=== PATIENT | male | born 1980 | race Caucasian/White ===

== ENCOUNTER 2019-04-10 16:12 | Emergency (ER) | payer OTHER ==
--- NOTE | 2019-04-10 16:52 | CR ---
[id number] RAD/RAD Skull Less than 4V Exam: RAD Skull Less than 4V Indication:TRAUMA. Comparison: No prior imaging for comparison. Discussion: No radiographically evident calvarial fracture or other significant abnormality. Impression: Normal examination of the calvarium. Wilbur Deleon MD 04/10/19 [id number] Thank you for allowing us to participate in the care of your patient.
[2019-04-10 17:02] LABS: CHLORIDE,CL 106 mmol/L (98-107); SODIUM,NA 141 mmol/L (136-145)
[2019-04-10 17:04] LABS: ANION GAP 15.7 mmol/L (10-20)
[2019-04-10] MEDS ORDERED: Cephalexin 500 MG Cap PO ONE (17:10)
--- NOTE | 2019-04-10 17:20 | EDM.PDOC ---
ED HPI GENERAL MEDICAL PROBLEM - General Chief Complaint: Laceration Stated Complaint: laceration Time Seen by Provider: 04/10/19 16:12 Source of Information: Reports: Patient History Limitations: Reports: No Limitations - History of Present Illness INITIAL COMMENTS - FREE TEXT/NARRATIVE: Patient comes into the emergency department for a laceration and bleeding from the scalp. Initial report from a coworker was the patient was involved in a rogers accident at a construction site. A trauma code was activated based off the information provided initially. After obtaining further information from the patient the rogers was in the process of being moved and the patient obtained a laceration by trying to get another coworker out of the way to prevent any injuries and caught the edge of the rogers bucket as he was ducking his head to get the coworker out of the way prior to the rogers moving. He denies being hit by any objects other than the sharp edge. He denies any CMS changes, dizziness, nausea, blurred vision, changes in vision, ringing of the ears, loss of consciousness, or any other medical complaints. Patient denies being hit bluntly by the rogers. Up to date on Tetanus. No meds, allergies, or bleeding disorders. Onset: Sudden Location: Reports: Head Quality: Reports: Other Severity: Mild Improves with: Reports: None Worsens with: Reports: None Associated Symptoms: Reports: No Other Symptoms - Related Data Home Meds: Home Meds Cephalexin [Keflex] 500 mg PO BID #14 capsule 04/10/19 [Rx] ED ROS GENERAL - Review of Systems Review Of Systems: ROS reveals no pertinent complaints other than HPI. Constitutional: Reports: No Symptoms HEENT: Reports: No Symptoms Respiratory: Reports: No Symptoms Cardiovascular: Reports: No Symptoms GI/Abdominal: Reports: No Symptoms : Reports: No Symptoms Musculoskeletal: Reports: No Symptoms Skin: Reports: No Symptoms Neurological: Reports: No Symptoms ED EXAM, GENERAL - Physical Exam Exam: See Below Exam Limited By: No Limitations General Appearance: Alert, WD/WN, No Apparent Distress Eye Exam: Bilateral Eye: EOMI, PERRL Ears: Normal External Exam, Normal Canal, Hearing Grossly Normal, Normal TMs Ear Exam: Bilateral Ear: Auricle Normal, Canal Normal, TM normal Nose: Normal Inspection, Normal Mucosa, No Blood Throat/Mouth: Normal Inspection, Normal Lips, Normal Teeth, Normal Gums, Normal Oropharynx, Normal Voice Head: Other (laceration with active bleeding ) Neck: Normal Inspection, Supple, Non-Tender, Full Range of Motion Respiratory/Chest: No Respiratory Distress, No Accessory Muscle Use Cardiovascular: Normal Peripheral Pulses, Regular Rate, Rhythm Back Exam: Normal Inspection, Full Range of Motion Extremities: Normal Inspection, Normal Range of Motion, Non-Tender, No Pedal Edema Neurological: Alert, Oriented, CN II-XII Intact, Normal Cognition, Normal Gait, No Motor/Sensory Deficits, Other (arrival 1612 GCS 15, 1620 GCS 15, GCS 1730 15) Psychiatric: Normal Affect, Normal Mood Skin Exam: Warm, Dry, Intact, Normal Color ED GENERAL MEDICAL PROCEDURES - Laceration/Wound Repair Middle Anterior Head Lac/wound length in cm: 7 Appearance: Linear Distal NVT: Neuro & Vascular Intact, No Tendon Injury Skin Prep: Chlorhexidine (Hibiciens), Saline, Sterile Drape Exploration/Debridement/Repair: Wound Explored, Explored to Base, Moderate Debridement Closed with: [place] # of Sutures: 16 (ke) Sterile Dressing Applied: Nurse Tetanus Status Addressed: Yes Complications: No Course - Orders/Labs/Meds Orders: Active Orders 24 hr Category Date Time Status INR,PT,PROTHROMBIN TIME [COAG] Routine Lab 04/10/19 16:35 Received PTT,PARTIAL THROMBOPLSTIN TIME [COAG] Routine Lab 04/10/19 16:35 Received Labs: Laboratory Tests 04/10/19 04/10/19 Range/Units 16:35 16:35 WBC 9.3 (4.0-10.0) x10^3/uL RBC 5.07 (4.5-6.0) x10^6/uL Hgb 15.6 (14.0-18.0) g/dL Hct 46.1 (40.0-52.0) % MCV 90.9 (78.0-93.0) fL MCH 30.8 (26.0-32.0) pg MCHC 33.8 (32.0-36.0) g/dL RDW Coeff of [place] 14.0 (10.0-15.0) % Plt Count 192 (130-400) x10^3/uL Neut % (Auto) 65.0 (50.0-80.0) % Lymph % (Auto) 20.4 L (25.0-50.0) % [place] % (Auto) 7.9 (2.0-11.0) % Eos % (Auto) 6.2 H (0.0-4.0) % Baso % (Auto) 0.5 (0.2-1.2) % Sodium 141 (136-145) mmol/L Potassium 4.7 (3.5-5.1) mmol/L Chloride 106 (98-107) mmol/L Carbon Dioxide 24 (21-32) mmol/L Anion Gap 15.7 (10-20) mmol/L BUN 19 H (7-18) mg/dL Creatinine 1.2 (0.70-1.30) mg/dL Est Cr Clr Drug Dosing TNP Estimated GFR (MDRD) > 60 Glucose 97 (74-106) mg/dL Calcium 8.7 (8.5-10.1) mg/dL Meds: Medications Discontinued Medications Generic Name Dose Route Start Last Admin Trade Name Freq PRN Reason Stop Dose Admin Cephalexin 500 mg 04/10/19 17:10 Keflex PO 04/10/19 17:11 ONETIME ONE Departure - Departure Time of Disposition: 17:45 Disposition: Home, Self-Care 01 Condition: Good Clinical Impression: Laceration - Discharge Information *PRESCRIPTION DRUG MONITORING PROGRAM REVIEWED*: Not Applicable *COPY OF PRESCRIPTION DRUG MONITORING REPORT IN PATIENT YOAV: Not Applicable Prescriptions: Cephalexin [Keflex] 500 mg PO BID #14 capsule Instructions: Laceration Care, Adult, Stitches, Ke, or Adhesive Wound Closure, [id number], Cephalexin oral suspension, Probiotics Referrals: PCP,Not In Area [Ordering Only Provider] - Forms: ED Department Discharge Additional Instructions: 1. keep the area clean and dry 2. wear head gear when outdoors while the ke are in 3. Can use triple antibiotic cream over the area 4. Follow up in 7-10 days in the clinic to have ke evaluated and removed 5. take antibiotic as prescribed to prevent infection 6. It is recommended that you take a probiotic while on antibiotics to promote health GI tract 7. Call with any questions or concerns - Problem List Review Problem List Initiated/Reviewed/Updated: Yes - My Orders Last 24 Hours: My Active Orders 04/10/19 16:35 INR,PT,PROTHROMBIN TIME [COAG] Routine PTT,PARTIAL THROMBOPLSTIN TIME [COAG] Routine - Assessment/Plan Last 24 Hours: My Active Orders 04/10/19 16:35 INR,PT,PROTHROMBIN TIME [COAG] Routine PTT,PARTIAL THROMBOPLSTIN TIME [COAG] Routine Assessment:: Laceration Plan: 1. Wound cleansing 2. Xray- head. results reviewed with the patient.-negative findings 3. Phone consult completed with Dr. Verdin regarding patients laceration and hematoma formation. His recommendation was to remove the hematoma clot and staple the wound close once edges are approximated. We also discussed if a CT would be recommended. Patients assessment did not show any signs of neurological deficits or any cognitive changes. If patient and employee state it was edge that cut the scalp. He feels the Xray is enough to evaluate for fractures and it is advisable to hold off unless neurovascular changes occur. 4. Discussed with the patient about a CT-scan and he does not feel at this time it is necessary. He is aware of the risk and the benefits regarding a CT-scan. 5. Wound cleansed 6. [place] applied to the head 7. Dressing applied 8. Antibiotics given and Tetanus was up to date 9. Patient remained alert and coherent. Ambulating without assistance. denies any pain or complaints. Able to provide feedback regarding instructions provided. 10. Education regarding medication, OTC pain relief, activity, diet, and follow up care provided 11. All questions and concerns addressed prior to discharge.
== END 2019-04-10 17:25 | disposition home or self-care (01) ==
LOC: VM.ED 16:12
DX: S01.01XA Laceration without foreign body of scalp, initial encounter (principal); W23.1XXA Caught, crushed, jammed, or pinched between stationary objects, initial encounter; Y99.0 Civilian activity done for income or pay
CPT/HCPCS: 12002; 70250; 80048; 85025; 85610; 85730; 99283; 99284; A9270; 12014